=== PATIENT | female | born 1970 | race Caucasian/White ===

== ENCOUNTER 2023-11-25 08:55 | Outpatient (CLI) | payer OTHER, SELFPAY ==
[2023-11-25 08:30] LABS: Abs Immature Grans 0.01 10^3/uL (0.0-0.06); Absolute Basophil Count 0.02 10^3/uL (0.0-0.2); Absolute Eosinophil Count 0.01 10^3/uL (0.0-0.7); Absolute Monocyte Count 0.22 10^3/uL (0.1-0.8); Basophils % 0.6; Eosinophils % 0.3; HCT 40.3 % (36.0-46.0); HGB 14.1 g/dL (11.2-15.7); Immature Grans % 0.3; Lymphocytes % 31.8; MCH 30.1 pg (27.0-33.0); MCV 86 fL (80-95); MPV 9.7 fL (8.0-11.0); Monocytes % 6.4; Neutrophils % 60.6; Platelet Count 199 10^3/uL (130-400); RBC 4.68 10^6/uL (3.93-5.22); RDW 11.8 % (11.7-14.6); RDW-SD 37.1 fL; WBC 3.46 10^3/uL (4.4-10.8)
[2023-11-25 08:53] LABS: ALT 26 U/L (14-59); AST 26 U/L (15-37); Albumin 4.1 g/dL (3.4-5.0); Alkaline Phosphatase 109 U/L (46-116); BUN 15 mg/dL (7-18); Bilirubin, Total 1.5 mg/dL (0.2-1.0); CREATININE 0.9 mg/dL (0.55-1.02); Calcium 9.3 mg/dL (8.5-10.1); Calculated LDL 111 mg/dL (<100); Chloride 105 mmol/L (98-107); Cholesterol 197 mg/dL (<200); Glucose 101 mg/dL (74-106); HDL Cholesterol 77 mg/dL (40-60); Sodium 143 mmol/L (136-145); TSH (W/Ref FT4) 2.91 uIU/mL (0.36-3.74); Total Protein 7.6 g/dL (6.4-8.2); Triglyceride 46 mg/dL (<150)
[2023-11-25 19:11] LABS: Hepatitis C Ab w Rflx HCV PCR Negative (Negative)
== END 2023-11-25 08:56 | disposition home or self-care (01) ==
LOC: LBO 08:55
PROVIDERS: PCP Nurse Practitioner Family; Visit Provider Nurse Practitioner Family
DX: Z00.00 Encounter for general adult medical examination without abnormal findings (principal)
CPT/HCPCS: 36415; 80053; 80061; 86803; 83036; 84443; 85025

== ENCOUNTER 2024-11-30 09:09 | Outpatient (CLI) | payer OTHER, SELFPAY ==
[2024-11-30 12:37] LABS: Abs Immature Grans 0.01 10^3/uL (0.0-0.06); Absolute Basophil Count 0.02 10^3/uL (0.0-0.2); Absolute Eosinophil Count 0.03 10^3/uL (0.0-0.7); Absolute Lymphocyte Count 1.38 10^3/uL (1.2-3.4); Absolute Monocyte Count 0.21 10^3/uL (0.1-0.8); Absolute Neutrophil Count 1.87 10^3/uL (1.2-6.7); Basophils % 0.6 %; Eosinophils % 0.9 %; HCT 40.7 % (36.0-46.0); HGB 13.6 g/dL (11.2-15.7); Immature Grans % 0.3 %; Lymphocytes % 39.2 %; MCHC 33.4 % (32.0-36.0); MCV 90 fL (80-95); Platelet Count 182 10^3/uL (130-400); RBC 4.53 10^6/uL (3.93-5.22); RDW 12.3 % (11.7-14.6); RDW-SD 40.4 fL; WBC 3.52 10^3/uL (4.4-10.8)
[2024-11-30 12:48] LABS: Anion Gap 4.9 mmol/L (3-11); BUN 18 mg/dL (7-18); CO2 30.1 mmol/L (21.0-32.0); CREATININE 0.8 mg/dL (0.55-1.02); Calcium 8.9 mg/dL (8.5-10.1); Calculated LDL 133 mg/dL (<100); Chloride 108 mmol/L (98-107); Cholesterol 216 mg/dL (<200); Estimated GFR 86.42 (mL/min/1.73m2); Glucose 87 mg/dL (74-106); HDL Cholesterol 78 mg/dL (>or=50); Potassium 3.9 mmol/L (3.5-5.1); Sodium 143 mmol/L (136-145); Triglyceride 27 mg/dL (<150)
== END 2024-11-30 09:10 | disposition home or self-care (01) ==
LOC: LOS 09:12
PROVIDERS: PCP Nurse Practitioner Family; Visit Provider Nurse Practitioner Family
DX: E78.5 Hyperlipidemia, unspecified (principal); Z00.00 Encounter for general adult medical examination without abnormal findings; Z71.89 Other specified counseling
CPT/HCPCS: 36415; 80048; 80061; 85025